=== PATIENT | female | born 1975 | race Caucasian/White ===

== ENCOUNTER → 2016-12-12 | Outpatient (CLI) | payer BC ==
[~2016-12-12] VITALS: Ht 167.6 cm; Wt 88.6 kg
[~2016-12-12] MED LIST: DOXYCYCLINE 10100 MG; LANTUS SOLOS100 U/ML SC; LEVEMIR FLEXPEN; LEVEMIR FLEXPEN SC; MOTRIN 600600 MG/TAB PO; MOTRIN 800800 MG/TAB PO; NO HOME MEDICATIONS; NORCO 325 MG-51 TAB PO; NOVOLOG FLEX100 U/ML SC; NTHROIDNT1/2 PO; NTHROIDNT3/4 PO; PERCOCET 325 MG1 TA2 PO; PRENATAL VITAMI1 TA5 PO; PRENATAL1 TA1 PO; PROMETRIUM100 MG PO; REVIA 50MG TABL50 MG PO; [UNRECOGNIZED DRUG - CODE] PO
[2016-12-12 11:48] VITALS: BP 148/79; PULSE 88
[2016-12-12 13:15] VITALS: BP 135/80; PULSE 87
== END ==
LOC: COL.RAD 11:07
DX: E04.1 Nontoxic single thyroid nodule (principal)
CPT/HCPCS: 25581

== ENCOUNTER → 2020-07-13 | Outpatient (CLI) | payer BC | END | disposition still patient (30) | LOC: MC.RAD 08:00 | DX: Z12.31 Encounter for screening mammogram for malignant neoplasm of breast (principal); N64.4 Mastodynia ==

== ENCOUNTER → 2020-10-27 | Outpatient (CLI) | payer BC | LOC: COL.RAD 11:51 | DX: E04.1 Nontoxic single thyroid nodule (principal) ==